=== PATIENT | female | born 1970 | race Hispanic/Latino ===

== ENCOUNTER 2021-12-09 11:36 | Emergency (ER) | payer BC ==
[~2021-12-09] VITALS: Ht 149.9 cm; Wt 61.2 kg
[2021-12-09] MEDS ORDERED: ONDANSETRON HCL INJ 2MG/ML 2ML 2 MG/ML VIAL IV STA (12:43)
[2021-12-09] MEDS ORDERED: KETOROLAC TROMETHAMINE 30 MG/ML VIAL IV STA (12:43)
[2021-12-09] MEDS ORDERED: SODIUM CHLORIDE 0.9% 1000ML 1,000 ML IV ONE (12:45)
[2021-12-09] MEDS ORDERED: KETOROLAC TROMETHAMINE 30 MG/ML VIAL ONE (12:57)
[2021-12-09] MEDS ORDERED: ONDANSETRON HCL INJ 2MG/ML 2ML 2 MG/ML VIAL ONE (12:57)
[2021-12-09] MEDS ORDERED: SODIUM CHLORIDE 0.9% 1000ML 1,000 ML ONE (12:58)
[2021-12-09] MEDS ORDERED: PROVENTIL HFA6.7 GM INH (13:45)
[2021-12-09] MEDS ORDERED: ONDANSETRON ODT4 MG PO (13:46)
[2021-12-09 14:12] VITALS: BP 132/71
== END 2021-12-09 14:01 | disposition home or self-care (01) ==
LOC: FSED 11:44
DX: R11.2 Nausea with vomiting, unspecified (principal); B34.9 Viral infection, unspecified; J98.01 Acute bronchospasm; I10 Essential (primary) hypertension
CPT/HCPCS: 80048; 80076; 81003; 83518; 85025; 87400; 99283; J1885; J2405; J7030

== ENCOUNTER 2024-03-19 18:13 | Emergency (ER) | payer BC ==
[~2024-03-19] VITALS: Ht 152.4 cm; Wt 72.6 kg
[~2024-03-19 18:13] MED LIST: ONDANSETRON ODT4 MG PO; PROVENTIL HFA6.7 GM INH
[2024-03-19 18:56] VITALS: PULSE 77; RESP 16; TEMP 98.2
[2024-03-19] MEDS: TRAMADOL HCL 50 MG TAB PO STA (19:09)
[2024-03-19] MEDS ORDERED: ULTRAM 50MG50 MG PO (21:14)
[2024-03-19 21:29] VITALS: BP 158/75; O2SAT 100
== END 2024-03-19 21:20 | disposition home or self-care (01) ==
LOC: ER 18:18
DX: S93.492A Sprain of other ligament of left ankle, initial encounter (principal); M54.50 Low back pain, unspecified; X50.1XXA Overexertion from prolonged static or awkward postures, initial encounter; Y93.01 Activity, walking, marching and hiking; Y92.89 Other specified places as the place of occurrence of the external cause; I10 Essential (primary) hypertension
CPT/HCPCS: 72100; 99284

== ENCOUNTER 2025-01-09 11:13 | Emergency (ER) | payer BC ==
[~2025-01-09] VITALS: Ht 152.4 cm; Wt 69.5 kg
[~2025-01-09 11:13] MED LIST changes: +ULTRAM 50MG50 MG PO
[2025-01-09 11:30] VITALS: PULSE 83; RESP 18; TEMP 98.1; O2SAT 97
[2025-01-09] MEDS: ACETAMINOPHEN 325 MG TAB PO ONE (11:45)
[2025-01-09] MEDS ORDERED: IBUPROFEN600 MG PO (11:46)
[2025-01-09] MEDS ORDERED: TYLENOL325 MG PO (11:46)
== END 2025-01-09 12:39 | disposition home or self-care (01) ==
LOC: FSED 11:16
DX: S83.8X1A Sprain of other specified parts of right knee, initial encounter (principal); X50.1XXA Overexertion from prolonged static or awkward postures, initial encounter; Y93.01 Activity, walking, marching and hiking; Y92.89 Other specified places as the place of occurrence of the external cause; I10 Essential (primary) hypertension
CPT/HCPCS: 99284